=== PATIENT | male | born 1980 | race American Indian/Alaskan Native ===

== ENCOUNTER 2021-07-28 15:13 | Emergency (ER) | payer OTHER ==
--- NOTE | 2021-07-28 15:21 | Emergency Department Report ---
ED Asthma HPI - General Chief Complaint: Adult Asthma Stated Complaint: ASTHMA Time Seen by Provider: 07/28/21 15:21 Source: patient, EMS Mode of arrival: Ambulatory Limitations: No Limitations - History of Present Illness Initial Comments: Patient presents by ambulance secondary to asthma attack. He has been having trouble breathing for the last couple of days. He has been using his inhaler. It does not seem to be helping. EMS did administer treatment in route. They have not administered steroids. Patient states that he feels much better than he did, but he is still tight and still feeling short of breath. There has been a cough producing a yellowish to greenish phlegm. He has had no fevers or chills. There is no vomiting or diarrhea. He has had no sick contacts that he can recall. There has been no recent travel. He has never been hospitalized due to asthma. - Related Data Previous Rx's Medication Instructions Recorded Last Taken Type Albuterol Sulfate [Proventil Hfa] 2 puff IH 4XD #1 inh 07/28/21 Unknown Rx predniSONE [Deltasone] 50 mg PO QDAY #5 tab 07/28/21 Unknown Rx Allergies Allergy/AdvReac Type Severity Reaction Status Date / Time No Known Allergies Allergy Unverified 07/28/21 15:21 ED Review of Systems ROS: Stated complaint: ASTHMA Other details as noted in HPI Comment: All other systems reviewed and negative Constitutional: denies: fever Eyes: denies: eye pain ENT: denies: throat pain Respiratory: see HPI Cardiovascular: denies: palpitations Endocrine: denies: unexplained weight loss Gastrointestinal: denies: abdominal pain Genitourinary: denies: dysuria Musculoskeletal: denies: back pain Skin: denies: rash Neurological: denies: headache Hematological/Lymphatic: denies: easy bruising ED Past Medical Hx - Past Medical History Previous Medical History?: Yes Hx Asthma: Yes Hx HIV: Yes - Family History Family history: asthma - Medications Home Medications: Home Medications Medication Instructions Recorded Confirmed Last Taken Type Albuterol Sulfate [Proventil Hfa] 2 puff IH 4XD #1 inh 07/28/21 Unknown Rx predniSONE [Deltasone] 50 mg PO QDAY #5 tab 07/28/21 Unknown Rx ED Physical Exam - General Limitations: No Limitations, Other (Pulse ox noted and normal) General appearance: alert, in distress (Mild) - Head Head exam: Present: atraumatic, normocephalic - Eye Eye exam: Present: normal appearance, EOMI - ENT ENT exam: Present: normal orophraynx, normal external ear exam - Neck Neck exam: Present: normal inspection. Absent: meningismus - Respiratory Respiratory exam: Present: respiratory distress (Mild), wheezes (Bilateral), decreased breath sounds - Cardiovascular Cardiovascular Exam: Present: normal rhythm, tachycardia - GI/Abdominal GI/Abdominal exam: Present: soft. Absent: tenderness - Extremities Exam Extremities exam: Present: normal capillary refill. Absent: pedal edema - Back Exam Back exam: Absent: CVA tenderness (R), CVA tenderness (L) - Neurological Exam Neurological exam: Present: alert, oriented X3, CN II-XII intact. Absent: motor sensory deficit - Psychiatric Psychiatric exam: Present: normal affect, normal mood - Skin Skin exam: Present: warm, dry ED Course Vital Signs 07/28/21 15:14 Pulse Rate 118 H Respiratory 18 Rate Blood Pressure 134/91 [Left] O2 Sat by Pulse 98 Oximetry - Reevaluation(s) Reevaluation #1: 07/28/21 15:54 EMS have been met upon arrival. DuoNeb was ordered. Old records noted. Reevaluation #2: 07/28/21 16:51 Saturations were maintained. Patient improved and was discharged. ED Medical Decision Making - Medical Decision Making Patient presents with asthma exacerbation. He has no symptoms suggestive of coronavirus. He is not hypoxic. He has no adventitious breath sounds after treatments that would suggest COVID or pneumonia. There is no suspicion for pneumothorax. He does not have a wide mediastinum that would suggest aortic dissection. Is not having chest pain suggestive of ACS. He does not appear to be septic or toxic. He does not have status asthmaticus and does not require admission. Critical Care Time: No Critical care attestation.: If time is entered above; I have spent that time in minutes in the direct care of this critically ill patient, excluding procedure time. ED Disposition Clinical Impression: Asthma exacerbation Qualifiers: Asthma severity: moderate Asthma persistence: persistent Qualified Code(s): J45.41 - Moderate persistent asthma with (acute) exacerbation Disposition: HOME / SELF CARE / HOMELESS Is pt being admited?: No Condition: Stable Instructions: Asthma, Adult Additional Instructions: Push fluids. Return for problems. Follow-up with your regular doctor for recheck and further management. Continue home medication. Prescriptions: predniSONE [Deltasone] 50 mg PO QDAY #5 tab Albuterol Sulfate [Proventil Hfa] 2 puff IH 4XD #1 inh Referrals: PRIMARY CARE, [Referring] - 3-5 Days EUGENE LIRA MD [Staff Physician] - 3-5 Days
[2021-07-28] MEDS ORDERED: IPRATROPIUM/ALBUTEROL SULFATE 3 ML AMPUL.NEB IH ONE (15:52)
[2021-07-28] MEDS ORDERED: predniSONE 20 MG TAB PO ONE (15:52)
[2021-07-28 18:18] VITALS: BP 102/87
== END 2021-07-28 18:16 | disposition home or self-care (01) ==
LOC: ED 15:13
DX: J45.901 Unspecified asthma with (acute) exacerbation (principal)
CPT/HCPCS: 94640; 99283; J7512